=== PATIENT | female | born 1980 | race Two or more races ===

== ENCOUNTER 2024-09-20 13:00 | Emergency (ER) | payer MEDICAID, OTHER ==
[~2024-09-20] VITALS: Ht 165.1 cm; Wt 79.4 kg
[~2024-09-20 13:00] MED LIST: MEFE250C19 PO
[2024-09-20 13:43] LABS: *BILIRUBIN,URIN NEGATIVE (NEGATIVE); *BLOOD, URINE NEGATIVE (NEGATIVE); *CLARITY,URINE CLEAR (CLEAR); *COLOR,URINE YELLOW (YELLOW); *KETONES,URINE NEGATIVE (NEGATIVE); *PROTEIN,URINE NEGATIVE (NEGATIVE); *UROBILINOGEN,URINE 0.2 E.U./dl (NORMAL); LEUKOCYTE ESTERASE ,URINE TRACE (NEGATIVE); NITRITE, URINE NEGATIVE (NEGATIVE); PH,URINE 5.5 (5.0-8.0); UGLUCOSE NEGATIVE (NEGATIVE)
[2024-09-20 13:45] LABS: *URINE HCG, QUAL NEGATIVE (NEGATIVE); BACTERIA,URINE FEW /HPF (NONE SEEN); SQUAMOUS EPITHELIAL CELL,UR FEW /HPF (NONE SEEN)
[2024-09-20 13:50] LABS: BASOPHILS # (AUTO) 0.1 K/UL (0.0-0.2); BASOPHILS % (AUTO) 1.1 % (0.0-2.0); EOSINOPHILS # (AUTO) 0.2 K/uL (0.0-0.7); EOSINOPHILS % (AUTO) 2.5 % (0.0-7.0); HEMATOCRIT 31.8 % (31.2-41.9); HEMOGLOBIN 9.9 g/dL (10.9-14.3); LYMPHOCYTES # (AUTO) 2.6 K/uL (0.8-4.8); LYMPHOCYTES % (AUTO) 33.5 % (20.5-51.5); MEAN CORPUSCULAR HEMOGLOBIN 24.1 uug (24.7-32.8); MEAN CORPUSCULAR HGB CONC 31 g/dL (32.3-35.6); MEAN CORPUSCULAR VOLUME 77.5 fL (75.5-95.3); MONOCYTES # (AUTO) 0.6 K/uL (0.1-1.30); MONOCYTES % (AUTO) 7.7 % (0.0-11.0); NEUTROPHILS # (AUTO) 4.2 K/uL (1.8-8.9); NEUTROPHILS % (AUTO) 55.2 % (38.5-71.5); PLATELET COUNT (AUTO) 283 K/uL (179-408); RED BLOOD CELL COUNT(AUTO) 4.11 MIL/uL (3.63-4.92); WHITE BLOOD COUNT (AUTO) 7.6 K/uL (3.8-11.8)
[2024-09-20 13:53] LABS: DIFFERENTIAL COMMENT 1
[2024-09-20 13:58] LABS: CREATININE 0.6 mg/dL (0.6-1.3); POTASSIUM 3.4 mmol/L (3.5-5.1)
[2024-09-20] MEDS ORDERED: CEFTRIAXONE /D5W 50ML IVPB **ER PYXIS IV ONE (13:58)
[2024-09-20 14:04] LABS: ALBUMIN 3.3 g/dL (3.4-5.0); BILIRUBIN,DIRECT 0.1 mg/dL (0.0-0.2); BILIRUBIN,TOTAL 0.4 mg/dL (0.2-1.0); TOTAL PROTEIN, SERUM 7.1 g/dL (6.4-8.2)
[2024-09-20 14:05] LABS: IRON, SERUM 26 ug/dL (50-175)
[2024-09-20] MEDS: IV NS 1000 ML 1,000 ML IV ONE (14:31)
[2024-09-20] MEDS: CEFTRIAXONE 1 G in IV DEXTROSE 5% 50 ML IV ONE (14:31)
[2024-09-20] MEDS ORDERED: ACET1TAB23 PO (15:48)
[2024-09-20] MEDS ORDERED: FERR325T23 PO (15:48)
[2024-09-20] MEDS ORDERED: CEFD300C3 PO (15:48)
[2024-09-20 16:02] VITALS: BP 124/79; TEMP 98.7; O2SAT 100
== END 2024-09-20 16:02 | disposition home or self-care (01) ==
LOC: ER 13:00
DX: N39.0 Urinary tract infection, site not specified (principal); R11.0 Nausea; R74.01 Elevation of levels of liver transaminase levels; F17.200 Nicotine dependence, unspecified, uncomplicated; R10.31 Right lower quadrant pain; Z88.7 Allergy status to serum and vaccine
CPT/HCPCS: 99284; 96365; 80076; 80048; 81001; 82607; 84703; 83550; 85025; 85044; 36415; 87086; 86708; 86803; 86706; J0696; J7040; 70030-TC; A4606; A4663

== ENCOUNTER 2025-10-15 13:48 | Emergency (ER) | payer MEDICAID ==
[~2025-10-15] VITALS: Ht 165.1 cm; Wt 81.6 kg
[2025-10-15 13:48] VITALS: BP 139/84
[~2025-10-15 13:48] MED LIST changes: +ACET1TAB93 PO; +CEFD300C3 PO; +FERR325T23 PO
[2025-10-15] MEDS ORDERED: HYDR-3980 PO (14:56)
[2025-10-15 15:19] VITALS: BP 139/80; TEMP 208.6; O2SAT 97
== END 2025-10-15 15:19 | disposition home or self-care (01) ==
LOC: ER 13:48
DX: S59.902A Unspecified injury of left elbow, initial encounter (principal); S56.919A Strain of unspecified muscles, fascia and tendons at forearm level, unspecified arm, initial encounter; F17.200 Nicotine dependence, unspecified, uncomplicated; Z86.018 Personal history of other benign neoplasm; Z88.7 Allergy status to serum and vaccine; Z98.51 Tubal ligation status; W18.39XA Other fall on same level, initial encounter; Y93.89 Activity, other specified; Y92.89 Other specified places as the place of occurrence of the external cause; Y99.9 Unspecified external cause status
CPT/HCPCS: 73080; A4606; A4663